=== PATIENT | female | born 1965 | race Hispanic/Latino ===

== ENCOUNTER → 2025-03-12 | Outpatient (CLI) | payer BC ==
--- NOTE | 2025-03-12 15:13 | HMCIMG ---
EXAM: CR Cervical spine, 5 View. CLINICAL HISTORY: CERVICALGIA COMPARISON: None provided. FINDINGS: BONES: No acute fracture or aggressive appearing osseous lesion. DISCS/DEGENERATIVE CHANGES: Marked loss of the disc spaces C5-C6 and C6-C7. Mild to moderate loss of the C4-C5 disc space. Mild anterior endplate marginal spurring. The C1-C2 relationship is intact mild to moderate facet arthrosis SOFT TISSUES: No prevertebral soft tissue swelling. The visualized lung apices are clear. IMPRESSION: 1. No acute osseous injury. 2. Marked degenerative disc disease at C5-C6 and C6-C7, moderate at C4-C5. 3. Mild to moderate facet arthrosis. If there is a history of trauma recommend a CT C-spine to rule out an acute fracture /[place]
== END | disposition home or self-care (01) ==
LOC: RAH 11:32
DX: M47.812 Spondylosis without myelopathy or radiculopathy, cervical region (principal); M50.321 Other cervical disc degeneration at C4-C5 level; M50.322 Other cervical disc degeneration at C5-C6 level; M50.323 Other cervical disc degeneration at C6-C7 level; M46.02 Spinal enthesopathy, cervical region; G89.29 Other chronic pain
CPT/HCPCS: 72040